=== PATIENT | female | born 1980 | race Two or more races ===

== ENCOUNTER 2016-09-03 16:28 | Inpatient (IN) | payer BC ==
[~2016-09-03] VITALS: Ht 167.6 cm; Wt 96.4 kg
[2016-09-03 17:02] VITALS: BP 121/90
[2016-09-03] MEDS: LACTATED RINGERS 1,000 ML IV SCH ×2 (17:02→23:37)
[2016-09-03] MEDS ORDERED: ASPI-515 PO (17:18)
[2016-09-03] MEDS ORDERED: PREN1TAB60 PO (17:18)
[2016-09-03] MEDS ORDERED: METF500T4 PO (17:19)
[2016-09-03] MEDS ORDERED: NITR100C56 PO (17:21)
[2016-09-03] MEDS ORDERED: PLEASE ENTER HEIGHT AND WEIGHT MC SCH (17:30)
[2016-09-03] MEDS ORDERED: LACTATED RINGERS 1,000 ML IV SCH (18:32)
[2016-09-03] MEDS ORDERED: LACTATED RINGERS 1,000 ML IVBOLUS ONE (19:00)
[2016-09-03] MEDS ORDERED: SODIUM CITRATE/CITRIC ACID 30 ML UDC PO ONE (19:00)
[2016-09-03] MEDS ORDERED: METOCLOPRAMIDE 5 MG/ML, 2ML IV ONE (19:00)
[2016-09-03 19:18] LABS: ASPARTATE AMINO TRANSFERASE 22 U/L (15-37); BLOOD UREA NITROGEN 17 mg/dL (7-18)
[2016-09-04] MEDS: LACTATED RINGERS 1,000 ML IV SCH ×4 (07:34→21:40)
[2016-09-04] MEDS ORDERED: NEWBORN KIT ONE (08:01)
[2016-09-04] MEDS ORDERED: OXYTOCIN 30U/ 0.9% NaCL 500ML 500 ML ONE (08:01)
[2016-09-04] MEDS ORDERED: hydrALAzine 20 MG/ML, 1ML IV PRN (08:30)
[2016-09-04] MEDS ORDERED: MIDAZOLAM 1 MG/ML, 2ML IV PRN (08:30)
[2016-09-04] MEDS ORDERED: LABETALOL 5MG/ML, 20ML IV PRN (08:30)
[2016-09-04] MEDS ORDERED: MEPERIDINE/PF 25MG/0.5ML IVPush PRN (08:30)
[2016-09-04] MEDS ORDERED: ONDANSETRON 2MG/ML, 2ML IVPush PRN (08:30)
[2016-09-04] MEDS ORDERED: ALBUTEROL SULFATE 2.5 MG/3 ML NPPB PRN (08:30)
[2016-09-04] MEDS ORDERED: FENTANYL PF 100 MCG/2ML IV PRN (08:30)
[2016-09-04] MEDS ORDERED: OXYcodone 5 MG/5 ML ORAL.SOL UDC PO PRN (08:30)
[2016-09-04] MEDS ORDERED: EPHEDRINE 50 MG/ML, 1ML IVPush PRN (08:30)
[2016-09-04] MEDS ORDERED: HYDROcodone/APAP 7.5-325MG/15ML UDC PO PRN (08:30)
[2016-09-04] MEDS ORDERED: PROMETHAZINE 25 MG/ML, 1ML IV PRN (08:30)
[2016-09-04] MEDS ORDERED: HYDROmorphone 1 MG/ML, 1ML IV PRN (08:30)
[2016-09-04] MEDS ORDERED: METOCLOPRAMIDE 5 MG/ML, 2ML ONE ×2 (11:27→16:19)
[2016-09-04] MEDS ORDERED: SODIUM CITRATE/CITRIC ACID 30 ML UDC ONE (11:27)
[2016-09-04] MEDS ORDERED: FENTANYL PF 100 MCG/2ML ONE (12:25)
[2016-09-04] MEDS ORDERED: OXYcodone/APAP 5/325MG TABLET PO PRN (14:00)
[2016-09-04] MEDS ORDERED: SIMETHICONE 80 MG CHEW TAB PO PRN (14:00)
[2016-09-04] MEDS ORDERED: METHYLERGONOVINE 0.2 MG/ML IM PRN (14:00)
[2016-09-04] MEDS ORDERED: MISOPROSTOL 200 MCG TABLET PR PRN (14:00)
[2016-09-04 15:30] VITALS: BP 139/85
[2016-09-04] MEDS ORDERED: CEFAZOLIN 1,000 MG ONE (16:19)
[2016-09-04] MEDS ORDERED: DEXAMETHASONE 4 MG/ML, 1ML ONE (16:19)
[2016-09-04] MEDS ORDERED: ONDANSETRON 2MG/ML, 2ML ONE (16:19)
[2016-09-04] MEDS ORDERED: KETOROLAC 30 MG/1 ML ONE (16:19)
[2016-09-04] MEDS ORDERED: OXYTOCIN 10 UNITS/ML, 1ML ONE (16:19)
[2016-09-04 17:30] VITALS: BP 131/85
[2016-09-04 20:00] VITALS: BP 131/79
[2016-09-04] MEDS: KETOROLAC 30 MG/1 ML IV PRN (20:17)
[2016-09-04] MEDS: OXYTOCIN 30U/ 0.9% NaCL 500ML 500 ML IV SCH (22:02)
[2016-09-04] MEDS: NITROFURANTOIN (MACROBID) 100 MG CAPSULE PO SCH (22:18)
[2016-09-05 00:15] VITALS: BP 120/70
[2016-09-05] MEDS: KETOROLAC 30 MG/1 ML IV PRN ×2 (02:16→08:16)
[2016-09-05] MEDS: OXYcodone/APAP 5/325MG TABLET PO PRN ×5 (02:16→21:39)
[2016-09-05 04:10] VITALS: BP 115/70
[2016-09-05] MEDS: LACTATED RINGERS 1,000 ML IV SCH ×5 (05:40→21:40)
[2016-09-05 07:30] VITALS: BP 129/75
[2016-09-05] MEDS: DOCUSATE 100 MG CAPSULE PO PRN ×2 (08:16→20:56)
[2016-09-05] MEDS: PRENATAL VIT/IRON/FA 1 EACH TABLET PO SCH (08:16)
[2016-09-05] MEDS: OXYTOCIN 30U/ 0.9% NaCL 500ML 500 ML IV SCH ×2 (09:40→19:40)
[2016-09-05] MEDS: NITROFURANTOIN (MACROBID) 100 MG CAPSULE PO SCH ×2 (10:04→21:39)
[2016-09-05] MEDS ORDERED: DIPH,PERTUSS(ACELL),TET VAC/PF NC IM-VACC ONE ×2 (12:28→12:30)
[2016-09-05] MEDS: IBUPROFEN 600 MG TABLET PO PRN ×2 (14:47→20:56)
[2016-09-05 19:50] VITALS: BP 120/78
[2016-09-06] MEDS: IBUPROFEN 600 MG TABLET PO PRN ×2 (02:57→09:02)
[2016-09-06] MEDS: OXYcodone/APAP 5/325MG TABLET PO PRN (02:58)
[2016-09-06] MEDS: OXYTOCIN 30U/ 0.9% NaCL 500ML 500 ML IV SCH (05:40)
[2016-09-06] MEDS: LACTATED RINGERS 1,000 ML IV SCH ×2 (05:40)
[2016-09-06 08:20] VITALS: BP 139/78
[2016-09-06] MEDS: PRENATAL VIT/IRON/FA 1 EACH TABLET PO SCH (09:02)
[2016-09-06] MEDS: DOCUSATE 100 MG CAPSULE PO PRN (09:02)
[2016-09-06] MEDS: NITROFURANTOIN (MACROBID) 100 MG CAPSULE PO SCH (10:02)
[2016-09-06] MEDS ORDERED: NITR100C56 PO (11:26)
[2016-09-06] MEDS ORDERED: DOCU-30 PO (11:26)
[2016-09-06] MEDS ORDERED: IBUP-1222 PO (11:27)
[2016-09-06] MEDS ORDERED: OXYC-302 PO (11:27)
== END 2016-09-06 13:10 | disposition home or self-care (01) | DRG 765 ==
LOC: LDOP 16:28 → LDIP 18:45 → 2NW 09-04 15:24
PROVIDERS: ADMIT Obstetrics & Gynecology; ATTEND Obstetrics & Gynecology
PROC: 10D00Z1 Extraction of Products of Conception, Low, Open Approach (ICD-10-PCS; principal; 2016-09-06)
DX: O34.211 Maternal care for low transverse scar from previous cesarean delivery (principal); O75.3 Other infection during labor; O41.03X0 Oligohydramnios, third trimester, not applicable or unspecified; Z37.0 Single live birth; Z3A.38 38 weeks gestation of pregnancy; O24.425 Gestational diabetes mellitus in childbirth, controlled by oral hypoglycemic drugs; O13.4 Gestational [pregnancy-induced] hypertension without significant proteinuria, complicating childbirth; E66.01 Morbid (severe) obesity due to excess calories; O99.214 Obesity complicating childbirth; Z91.19 Patient's noncompliance with other medical treatment and regimen; Z68.34 Body mass index [BMI] 34.0-34.9, adult
CPT/HCPCS: 36415; 76815; 80053; 81001; 82570; 82962; 84156; 84550; 85025; 86850; 86900; 90715; J0690; J1100; J1885; J2405; J3010; J2590; J2765; J7120